=== PATIENT | female | born 1985 | race Two or more races ===

== ENCOUNTER 2024-05-12 08:02 | Outpatient (CLI) | payer OTHER | END 2024-05-12 08:38 | disposition home or self-care (01) | LOC: MRI 08:02 | PROVIDERS: ATTEND Obstetrics & Gynecology | DX: N83.201 Unspecified ovarian cyst, right side (principal); D49.59 Neoplasm of unspecified behavior of other genitourinary organ; R10.2 Pelvic and perineal pain | CPT/HCPCS: 72196 ==

== ENCOUNTER 2024-05-15 09:03 | Outpatient (CLI) | payer OTHER ==
[2024-05-15 15:49] LABS: RAPID PLASMA REAGIN NONREACTIVE BY RPR (NONREACTIVE)
== END 2024-05-15 09:11 | disposition home or self-care (01) ==
LOC: LAB 09:03
PROVIDERS: ATTEND Obstetrics & Gynecology
DX: R74.8 Abnormal levels of other serum enzymes (principal); Z11.4 Encounter for screening for human immunodeficiency virus [HIV]; B00.9 Herpesviral infection, unspecified; N83.201 Unspecified ovarian cyst, right side; D49.59 Neoplasm of unspecified behavior of other genitourinary organ; R10.2 Pelvic and perineal pain

== ENCOUNTER 2025-06-12 07:08 | Outpatient (CLI) | payer OTHER ==
[2025-06-12 08:12] LABS: BASO % 0.3 % (0.1-1.2); EOS # 0.20 (0.04-0.54); EOS % 3.3 % (0.7-7.0); LYMPH # 1.85 (1.18-3.74); LYMPH % 30.2 % (19.3-53.1); MEAN PLATELET VOLUME 9.00 fl (9.4-12.4); MONO # 0.42 (0.24-0.82); MONO % 6.9 % (4.7-12.5); NEUT # 3.63 (1.56-6.13); NEUT % 59.1 % (34.0-71.1); RED CELL DISTRIBUTION WIDTH 12.4 % (11.6-14.4)
[2025-06-12 08:26] LABS: URINE APPEARANCE Clear; URINE BILIRRUBIN Negative (NEGATIVE); URINE COLOR Yellow; URINE GLUCOSE Negative (NEGATIVE); URINE KETONE Negative (NEGATIVE); URINE LEUKOCYTE Negative; URINE NITRATE Negative; URINE PROTEIN Negative (NEGATIVE); URINE UROBILINOGEN 0.2 E.U./dl
[2025-06-12 08:27] LABS: URINE BACTERIA 239.9 uL (0.0-1933); URINE EPITHELIAL CELLS 15.6 uL (0.0-38.8); URINE RBC 29.3 uL (0.0-20.8); URINE WBC 3.6 uL (0.0-23.2)
[2025-06-12 08:48] LABS: ALT/SGPT 19.0 U/L (12-78); AST/SGOT 8.0 U/L (15-37); BILIRUBIN TOTAL 0.68 mg/dL (0.3-1.2); BUN CREA RATIO 17.0 (7.0-25.0); CHOL HDL RATIO 3.8 (0-5.0); CREATININE SERUM 0.71 mg/dL (0.55-1.02); GFR 90.27; GLOBULINA 3.0 G/DL (2.4-3.5); GLUCOSE FASTING 93.0 mg/dL (65-100); HDL 56.0 mg/dl (40-60); LDL 144.0 mg/dl (0-130); OSMOLALITY SERUM 283.0 MOSM/KG (275-295); T4 FREE 0.98 NG/ML (0.76-1.46); TSH 1.39 uIU/mL (0.358-3.74); VLDL 13.0 (0-39)
[2025-06-12 09:06] LABS: URINE CAST 0.00 uL (0.0-1.40)
[2025-06-12 09:07] LABS: URINE BLOOD TRACES
[2025-06-13 08:11] LABS: HSV I IGG TYPE SPECIFIC Reactive (Non Reactive); hav igm Negative (Negative); hep b c Negative (Negative); hep b s ag Negative (Negative)
[2025-06-13 10:07] LABS: ESTRADIOL SERUM 74.9 pg/mL (.)
== END 2025-06-12 07:10 | disposition home or self-care (01) ==
LOC: LAB 07:08
PROVIDERS: ATTEND Obstetrics & Gynecology
DX: E67.3 Hypervitaminosis D (principal); R74.01 Elevation of levels of liver transaminase levels; Z11.4 Encounter for screening for human immunodeficiency virus [HIV]; B00.9 Herpesviral infection, unspecified; D53.9 Nutritional anemia, unspecified; E78.2 Mixed hyperlipidemia; D64.9 Anemia, unspecified; E03.9 Hypothyroidism, unspecified; E78.00 Pure hypercholesterolemia, unspecified; Z11.3 Encounter for screening for infections with a predominantly sexual mode of transmission; N39.0 Urinary tract infection, site not specified; Z01.419 Encounter for gynecological examination (general) (routine) without abnormal findings; N83.201 Unspecified ovarian cyst, right side; N95.1 Menopausal and female climacteric states